=== PATIENT | female | born 1950 | race Caucasian/White ===

== ENCOUNTER 2023-11-23 09:09 | Outpatient (CLI) | payer MEDICARE, BC, SELFPAY | END 2023-11-23 09:10 | disposition home or self-care (01) | PROVIDERS: PCP Family Medicine; Visit Provider Family Medicine | DX: Z00.00 Encounter for general adult medical examination without abnormal findings (principal); E66.01 Morbid (severe) obesity due to excess calories; E55.9 Vitamin D deficiency, unspecified; R73.03 Prediabetes; I10 Essential (primary) hypertension; R53.83 Other fatigue; J45.909 Unspecified asthma, uncomplicated; G62.9 Polyneuropathy, unspecified | CPT/HCPCS: 80053; 80061; 82306; 82607; 84443 ==

== ENCOUNTER 2023-12-31 12:21 | Outpatient (CLI) | payer MEDICARE, BC, SELFPAY ==
[2023-12-31 08:56] VITALS: BMI 54.1
== END 2023-12-31 12:22 | disposition home or self-care (01) ==
LOC: NUTRITION 12:21
PROVIDERS: PCP Family Medicine; Visit Provider Dietitian, Registered
DX: E66.01 Morbid (severe) obesity due to excess calories (principal); R73.03 Prediabetes; Z71.3 Dietary counseling and surveillance
CPT/HCPCS: G0463

== ENCOUNTER 2024-01-03 09:49 | Outpatient (CLI) | payer MEDICARE, BC, SELFPAY ==
--- NOTE | 2024-01-03 10:52 | W.ANESCHARGE ---
Anesthesia Charges Start Date/Time Anesthesia Start Date: 01/03/24 Anesthesia Start Time: 10:47 Stop Date/Time Anesthesia Stop Date: 01/03/24 Anesthesia Stop Time: 11:15 Summary Extremes of Age - Over 70 or under 1: MDA
--- NOTE | 2024-01-03 11:19 | W.ANESCHARGE ---
Anesthesia Charges Start Date/Time Anesthesia Start Date: 01/03/24 Anesthesia Start Time: 10:47 Stop Date/Time Anesthesia Stop Date: 01/03/24 Anesthesia Stop Time: 11:15 Summary Extremes of Age - Over 70 or under 1: [employer]
== END 2024-01-03 09:50 | disposition home or self-care (01) ==
LOC: OP CLINIC 09:51
PROVIDERS: PCP Family Medicine; Visit Provider Internal Medicine
DX: D12.3 Benign neoplasm of transverse colon (principal); K64.9 Unspecified hemorrhoids; K57.30 Diverticulosis of large intestine without perforation or abscess without bleeding; Z86.0100 Personal history of colon polyps, unspecified
CPT/HCPCS: 00811; 45380; 88305; 99100; J2704; J3490

== ENCOUNTER 2024-01-21 09:00 | Outpatient (CLI) | payer MEDICARE, BC, SELFPAY ==
[2024-01-21 09:51] VITALS: BMI 53.6
== END 2024-01-21 09:01 | disposition home or self-care (01) ==
LOC: NUTRITION 01-24 10:35
PROVIDERS: PCP Family Medicine; Visit Provider Dietitian, Registered
DX: E66.01 Morbid (severe) obesity due to excess calories (principal); R73.03 Prediabetes; Z71.3 Dietary counseling and surveillance
CPT/HCPCS: G0463

== ENCOUNTER 2024-02-04 07:57 | Outpatient (CLI) | payer MEDICARE, BC, SELFPAY ==
[2024-02-04 09:42] VITALS: BMI 52.9
== END 2024-02-04 07:58 | disposition home or self-care (01) ==
LOC: NUTRITION 08:18
PROVIDERS: PCP Family Medicine; Visit Provider Dietitian, Registered
DX: E66.9 Obesity, unspecified (principal); Z71.3 Dietary counseling and surveillance
CPT/HCPCS: G0463

== ENCOUNTER 2024-02-18 11:43 | Outpatient (CLI) | payer MEDICARE, BC, SELFPAY ==
[2024-02-18 09:30] VITALS: BMI 52.6
== END 2024-02-18 11:44 | disposition home or self-care (01) ==
LOC: NUTRITION 11:44
PROVIDERS: PCP Family Medicine; Visit Provider Dietitian, Registered
DX: E66.9 Obesity, unspecified (principal); Z71.3 Dietary counseling and surveillance
CPT/HCPCS: G0463

== ENCOUNTER 2024-03-03 09:00 | Outpatient (CLI) | payer MEDICARE, BC, SELFPAY | END 2024-03-03 09:01 | disposition home or self-care (01) | LOC: NUTRITION 04-05 13:12 | PROVIDERS: PCP Family Medicine; Visit Provider Dietitian, Registered | DX: E66.9 Obesity, unspecified (principal); Z68.43 Body mass index [BMI] 50.0-59.9, adult; R73.03 Prediabetes; Z71.3 Dietary counseling and surveillance | CPT/HCPCS: G0463 ==

== ENCOUNTER 2024-03-17 07:39 | Outpatient (CLI) | payer MEDICARE, BC, SELFPAY ==
[2024-03-17 10:56] VITALS: BMI 51.4
== END 2024-03-17 07:40 | disposition home or self-care (01) ==
LOC: NUTRITION 07:40
PROVIDERS: PCP Family Medicine; Visit Provider Dietitian, Registered
DX: E66.9 Obesity, unspecified (principal); Z71.3 Dietary counseling and surveillance
CPT/HCPCS: G0463

== ENCOUNTER 2024-03-31 09:41 | Outpatient (CLI) | payer MEDICARE, BC, SELFPAY ==
[2024-03-31 10:38] VITALS: BMI 51.2
== END 2024-03-31 09:42 | disposition home or self-care (01) ==
LOC: NUTRITION 09:41
PROVIDERS: PCP Family Medicine; Visit Provider Dietitian, Registered
DX: E66.9 Obesity, unspecified (principal); Z68.43 Body mass index [BMI] 50.0-59.9, adult; Z71.3 Dietary counseling and surveillance
CPT/HCPCS: G0463

== ENCOUNTER 2024-04-14 09:00 | Outpatient (CLI) | payer MEDICARE, BC, SELFPAY ==
[2024-04-14 11:25] VITALS: BMI 51.1
== END 2024-04-14 09:01 | disposition home or self-care (01) ==
LOC: NUTRITION 09:01
PROVIDERS: PCP Family Medicine; Visit Provider Dietitian, Registered
DX: E66.9 Obesity, unspecified (principal); Z68.43 Body mass index [BMI] 50.0-59.9, adult; Z71.3 Dietary counseling and surveillance
CPT/HCPCS: G0463

== ENCOUNTER 2024-04-27 05:57 | Outpatient (CLI) | payer MEDICARE, BC, SELFPAY ==
[2024-04-27 10:26] VITALS: BMI 50.7
== END 2024-04-27 05:58 | disposition home or self-care (01) ==
LOC: NUTRITION 13:39
PROVIDERS: PCP Family Medicine; Visit Provider Dietitian, Registered
DX: E66.9 Obesity, unspecified (principal); Z68.43 Body mass index [BMI] 50.0-59.9, adult; Z71.3 Dietary counseling and surveillance
CPT/HCPCS: G0463

== ENCOUNTER 2024-05-04 07:24 | Outpatient (CLI) | payer MEDICARE, BC, SELFPAY ==
[2024-05-04 07:51] LABS: Creatinine* 0.9 mg/dL (0.5-1.5); Estimated Glomerular Filt Rate 68 ml/min
--- NOTE | 2024-05-04 08:00 | CRLHL7_ITS ---
For Patients: As a result of the Century Cures Act, medical imaging exams and procedure reports are released immediately into your electronic medical record. You may view this report before your referring provider. If you have questions, please contact your health care provider. INDICATION: LOCALIZED SWELLING, MASS AND LUMP, LEFT SIDE PAIN COMPARISON: none TECHNIQUE: CT ST Neck W/ 95CC [id number] Please note that all CT scans at this facility use dose modulation, iterative reconstruction, and/or weight-based dosing when appropriate to reduce radiation dose to as low as reasonably achievable. FINDINGS: The CT images demonstrate normal aeration of the mastoid air cells and middle ear cavities. Mild opacification of the ethmoid and maxillary sinuses. The nasopharynx appears normal. The parotid and submandibular glands are of normal size and have uniform enhancement. The oropharynx appears normal. The valleculae, epiglottis, aryepiglottic folds and piriform sinuses appear normal. There is a normal appearance of the larynx and subglottic trachea. Incidental sub cm nodule right thyroid lobe. There is no evidence of lymphadenopathy within the anterior and posterior cervical triangles or within the supraclavicular region. Normal left supraclavicular soft tissues without mass or fluid collection. Mild degenerative disc disease in the cervical spine. Lung apices are clear. IMPRESSION: No suspicious mass or adenopathy within the left supraclavicular region to correlate with the area of concern. Mild bilateral sinus disease incidentally noted. Please note that all CT scans at this facility use dose modulation, iterative reconstruction, and/or weight-based dosing when appropriate to reduce radiation dose to as low as reasonably achievable. Dictated by Fer Oakes MD @ 05/04/2024 8:39:11 AM (Electronically Signed)
== END 2024-05-04 07:25 | disposition home or self-care (01) ==
LOC: CT 07:25
PROVIDERS: PCP Family Medicine; Visit Provider Family Medicine
DX: R22.1 Localized swelling, mass and lump, neck (principal); J32.9 Chronic sinusitis, unspecified; M54.2 Cervicalgia
CPT/HCPCS: 36415; 70491; 82565; Q9967

== ENCOUNTER 2024-05-11 09:01 | Outpatient (CLI) | payer MEDICARE, BC, SELFPAY | END 2024-05-11 09:02 | disposition home or self-care (01) | LOC: NUTRITION 09:01 | PROVIDERS: PCP Family Medicine; Visit Provider Dietitian, Registered | DX: E66.9 Obesity, unspecified (principal); Z68.43 Body mass index [BMI] 50.0-59.9, adult; Z71.3 Dietary counseling and surveillance | CPT/HCPCS: G0463 ==

== ENCOUNTER 2024-06-01 12:50 | Outpatient (CLI) | payer MEDICARE, BC, SELFPAY ==
[2024-06-01 10:13] VITALS: BMI 50.7
== END 2024-06-01 12:51 | disposition home or self-care (01) ==
LOC: NUTRITION 12:51
PROVIDERS: PCP Family Medicine; Visit Provider Dietitian, Registered
DX: E66.9 Obesity, unspecified (principal); Z68.43 Body mass index [BMI] 50.0-59.9, adult; Z71.3 Dietary counseling and surveillance
CPT/HCPCS: G0463

== ENCOUNTER 2024-06-23 07:26 | Outpatient (CLI) | payer MEDICARE, BC, SELFPAY ==
[2024-06-23 09:29] VITALS: BMI 50.2
== END 2024-06-23 07:27 | disposition home or self-care (01) ==
LOC: NUTRITION 07:26
PROVIDERS: PCP Family Medicine; Visit Provider Dietitian, Registered
DX: E66.9 Obesity, unspecified (principal); Z68.43 Body mass index [BMI] 50.0-59.9, adult; Z71.3 Dietary counseling and surveillance
CPT/HCPCS: G0463

== ENCOUNTER 2024-06-26 08:11 | Outpatient (CLI) | payer MEDICARE, BC, SELFPAY | END 2024-06-26 08:12 | disposition home or self-care (01) | LOC: NFLDREF 07-01 19:43 | PROVIDERS: PCP Family Medicine; Referring Provider Family Medicine; Visit Provider Family Medicine | DX: R73.03 Prediabetes (principal); I10 Essential (primary) hypertension | CPT/HCPCS: 80053 ==

== ENCOUNTER 2024-07-21 06:22 | Outpatient (CLI) | payer MEDICARE, BC, SELFPAY ==
[2024-07-21 10:25] VITALS: BMI 50.5
== END 2024-07-21 06:23 | disposition home or self-care (01) ==
LOC: NUTRITION 06:26
PROVIDERS: PCP Family Medicine; Visit Provider Dietitian, Registered
DX: E66.9 Obesity, unspecified (principal); Z68.43 Body mass index [BMI] 50.0-59.9, adult; Z71.3 Dietary counseling and surveillance
CPT/HCPCS: G0463

== ENCOUNTER 2024-08-11 08:02 | Outpatient (CLI) | payer MEDICARE, BC, SELFPAY ==
[2024-08-11 09:26] VITALS: BMI 50.4
--- OUTSIDE RECORDS SUMMARY | 2024-08-12 00:19 | XMS_ITS | Clinical Summary ---
Author Organization [facility] Address [address] [place] [id number] Care Team Providers Care Nurse Assessor Name Role Phone Mounika Astorga MD Primary Care Provider [phone] Allergies Active Allergy Reactions Criticality Noted Date Comments Mustapha Inhibitors Cough Medium 01/06/2021 Amoxicillin *Unknown Medium 01/06/2021 Diltiazem Hcl *Unknown Medium 01/06/2021 Medications RAMY 180 MG TAB take 1 tablet (180 mg) by oral route once daily 0 Active ibuprofen (ADVIL; MOTRIN) 200 mg cap Take 400 mg by mouth every 4 hours if needed. 4 Active budesonide-formot Beronica (SYMBICORT) 160-4.5 mcg/actuation (160-4.5 mcg each actuation) inhalerIndication s:Moderate persistent asthma without complication (HC) Inhale 2 Puffs by mouth two times daily. 30.6 g 4 Active albuterol HFA (PRO-AIR; VENTOLIN; PROVENTIL) 90 mcg/actuation inhalerIndication s:Moderate persistent asthma without complication (HC) Inhale 1-2 Puffs by mouth every 4 hours if needed for Shortness of Breath 1st choice. 1 Each 4 Active losartan (COZAAR) 100 mg tabletIndications :HTN (hypertension) Take 1 Tablet (100 mg) by mouth once daily. 90 Tablet 4 Active oxybutynin XL (DITROPAN XL) 10 mg CR tabletIndications :Overactive bladder Take 1 Tablet (10 mg) by mouth once daily. 90 Tablet 4 Active Active Problems Problem Noted Date Diagnosed Date Colon polyp 03/21/2021 Overview (10/22/2022): Colonoscopy 03/2021 over ten TA,, one SSA repeat in 1 year Colonoscopy 10/2022 8-TA, repeat in 2 years, genetic counseling Mild persistent asthma, uncomplicated 09/11/2015 Essential (primary) hypertension 10/24/2013 Overactive bladder 04/20/2011 Resolved Problems Problem Noted Date Diagnosed Date Resolved Date Cough 06/26/2019 10/13/2022 Body mass index (BMI) 40.0-44.9, adult 08/25/2018 10/13/2022 Leukoplakia of oral mucosa, including tongue 9 10/13/2022 Other specified disorder of gallbladder 03/22/2007 10/13/2022 Overview (03/22/2007): Biliary dyskinesia. Immunizations Immunization Administration Dates Next Due COVID-19 vaccine (Moderna 100mcg/0.5mL) PF, MDV 05/16/2021,12/06/2020 Influenza, High-dose Inactivated 12/20/2017,11/15 Influenza, High-dose Quadrivalent Inactivated Influenza, IIV4 12/04/2015,12/12/2014 Influenza, Inactivated AIIV4 (Age 65+ Years) Preserv Free 10/27/2021,11/06/2019 Influenza, Inactivated IIV3 (Age 65+ Years) Preserv Free 11/14/2018 Pneumococcal Poly,23-Valent (Pneumovax) 11/15/19 21,02/22/2009 Pneumococcal conj 13-Valent (Prevnar 13) 019 Td, Preservative Free (age >= 7 Years) 3 Tdap 12/22/2011 Zoster (Shingrix-RZV, recombinant) 08/26/2022 Family History Medical History Relation Name Comments Asthma Brother 1 Stroke Brother 1 Skin cancer Brother 2 Lung cancer Brother 3 Lung cancer Father Hepatitis Mother Cancer-breast No Family History Cancer-ovarian No Family History Relation Name Status Comments Brother 1 Alive Brother 2 Brother 3 Alive Brother 4 Alive Brother 5 Alive Father (Age 59) Cause of d eath was lung cancer Mother (Age 77) Cause of d eath was hepatitis complications Social History Tobacco Use Types Packs/Day Years Used Date Smoking Tobacco: Never Smokeless Tobacco: Never Alcohol Use Standard Drinks/Week Comments Never 0 (1 standard drink = 0.6 oz pur e alcohol) PHQ-2 Answer Date Recorded PHQ-2 TOTAL SCORE 0 10/13/2022 Social Connections Answer Date Recorded Frequency of Communication with Friends and Fami ly 0 07/14/2022 Financial Resource Strain Answer Date R ecorded Difficulty of Paying Living Expenses 3 07/14/2022 Difficulty of Paying Living Expenses Not on file 07/14/2022 Food Insecurity Answer Date Recorded Worried About Running Out of Food in the Last Ye ar 1 07/14/2022 Transportation Needs Answer Date Record ed Lack of Transportation (Medical) 1 07/14/2022 Housing Stability Answer Date Recorded Unable to Pay for Housing in the Last Year 1 07/14/2022 Comments No Sex and Gender Information Value Date Recorded Sex Assigned at Not on file Legal Sex Female 6:19 AM [employer] 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 Gender Identity Not on file Sexual Orientation Not on file Obstetrics History Last Filed Vital Signs Vital Sign Reading Time Taken Comments Blood Pressure 132/74 10/20/2022 11:15 AM CDT Pulse 70 10/20/2022 11:15 AM CDT Temperature 36.8 C (98.2 F) 03/22/2007 7:00 AM DRUG 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 Respiratory Rate 16 10/20/2022 11:15 AM CDT Oxygen Saturation 92% 10/20/2022 11:15 AM CDT Inhaled Oxygen Concentration - - Weight 136.1 kg (300 lb) 10/13/2022 9:54 AM CDT Height 162.6 cm (5' 4) 10/13/2022 9:54 AM CDT Body Mass Index 51.49 10/13/2022 9:54 AM CDT Plan of Treatment Health Maintenance Due Date Last Done Comments RSV vaccine for adults or (1 - Risk 60-74 years 1-dose series) 2011 Zoster (shingles) series for age 50+ (2 of 2) 10/21/2022 08/26/2022 BMI (ht and wt on same day) for age 18+ 10/14/2023 10/13/2022, 07/14/2022, 08/04/2021, Additional history exists Medicare Wellness for age 65+ 10/14/2023 10/13/2022, 08/04/2021 Depression screening for age 12+ 10/16/2023 10/15/2022, 10/13/2022, 08/04/2021, Additional history exists COVID-19 vaccine series ( season) 2023 06/25/2022, 10/27/2021, 05/16/2021, Additional history exists Colonoscopy through age 75 10/21/202310/20, 10/20/2022, 03/19/2021, Additional history exists Influenza Vaccine (Season Ended) 2024 10/27/2021, 11/06/2019, 11/14/2018, Additional history exists Mammogram for age 45-75 10/25/2024 10/26/19 24, 07/03/2022, 01/21/2021, Additional history exists Lipids for age 45-75 10/14/2027 10/13/2022, 01/07/20 Tetanus booster 08/26/2032 08/26/2022, 12/22/2011 Tdap Completed 12/22/2011 Pneumococcal series for age 50+ Completed 11/14/2020, 06/27/2018, 02/22/2009 DEXA/DXA scan for age 65+ Completed 08/04/2021 Hepatitis C screening for age 18-79 Completed 08/04/2021 Hepatitis B series for 19+ Aged Out N o longer eligible based on patient's age to complete this topic Procedures Procedure Name Priority Date/Time Associated Diagnosis Comments XR MAMMO LOTTIE BILAT SCREEN Routine 10/26/2023 9:40 AM CDT Encounter for screening mammogram for malignant neoplasm of breast COLONOSCOPY 10/20/2022 9:58 AM CDT LIPID PANEL W REFLEX MEASURED LDL Routine 10/13/2022 10:38 AM CDT HTN (hypertension) XR DXA BONE DENSITY 2 SITES AXIAL Routine 08/04/2021 2:13 PM CDT Menopause ANTI HCV Routine 08/04/2021 1:38 PM CDT Need for hepatitis C screening test from Last 3 Months or Most Recently Relevant to Health Maintenance Results * XR MAMMO LOTTIE BILAT SCREEN (10/26/2023 9:40 AM CDT) Anatomical Region Laterality Modality BREASTS, Breast Left, Breast Right Bilateral Mammography Impressions 10/26/2023 2:02 PM CDT There is no radiographic evidence for malignancy. Recommend annual mammograms. MAMMOGRAM ASSESSMENT: ACR 1 Negative PATIENTS: You will also receive a letter with your examination results in an easy to read format. If you have questions about your results, please contact your referring provider. Narrative 10/26/2023 2:02 PM CDT For Patients: As a result of the Century Cures Act, medical imaging exams and procedure reports are released immediately into your electronic medical record. You may view this report before your referring provider. If you have questions, please contact your health care provider. XR MAMMO LOTTIE BILAT SCREEN [[id number]] CLINICAL HISTORY: This is an asymptomatic 73 y.o. patient. INDICATION FOR EXAM: Mammogram Screening. TECHNIQUE: CC & MLO views were obtained. This study was evaluated with the assistance of Computer-Aided Detection. Breast Tomosynthesis was used in interpretation. COMPARISON FILM: Yes 07/03/22 [facility] 01/21/21 [facility] FINDINGS: The breasts are almost entirely fatty. There are no dominant masses, suspicious micro calcifications or areas of architectural distortion. us Mounika Astorga MD MAMMO Final Resu lt * COLONOSCOPY (10/20/2022 9:58 AM CDT) 10/20/2022 9:58 AM CDT Narrative Transcriptions Cayetano Garcia MD - 10/20/2022 11:08 AM CDT Patient Name: Glenn Mistyr Procedure Date: 10/20/2022 Gender: Female Date of : 1950 Admit Type: Outpatient Procedure: Colonoscopy Proceduralist: Cayetano Garcia MD , Janice Rouse RN(Nurse), Teagan Herring (Nurse) Indications/Pre-Op Diagnosis: High risk colon cancer surveillance:Personal history of multiple (3 or more) adenomas,High risk colon cancer surveillance: Personal history of sessile serrated colon polyp(less than 10 mm in size) with no dysplasia, Last colonoscopy: March 2021 Medications: Fentanyl 100 micrograms IV, Midazolam 2 mgIV, The level of sedation administered wasmoderate Procedure Description: The patient had risks, benefits and alternatives explained to andgave informed consent. The patient had a stable cardiopulmonary status and judged an adequate candidate for conscious sedation. The endoscope [id number] was passed through the anus andadvanced to the cecum, identified by appendiceal orifice and ileocecal valve.The colonoscopy was performed without difficulty. The patient toleratedthe procedure well. The quality of the bowel preparation was good. The ileocecal valve, appendiceal orifice, and rectum were photographed. Complications: No immediate complications. Estimated Blood Loss & Specimen: Estimated blood loss: none. Specimen collected - Yes and sent to Laboratory Findings: The perianal and digital rectal examinations were normal. Three sessile polyps were found in the cecum. The polyps were 2 to 3mm in size. These polyps were removed with a cold biopsy forceps.Resection and retrieval were complete. Five sessile polyps were found in the transverse colon. The polypswere 2 to 3 mm in size. These polyps were removed with a cold biopsyforceps. Resection and retrieval were complete. The colon (entire examined portion) was mildly redundant. The exam was otherwise without abnormality on direct and retroflexion views. Impressions/Post-Op Diagnosis: - Three 2 to 3 mm polyps in the cecum, removed with a cold biopsy forceps. Resected and retrieved. - Five 2 to 3 mm polyps in the transverse colon, removed with a cold biopsy forceps. Resected and retrieved. - Redundant colon. - The examination was otherwise normal on direct and retroflexionviews. Recommendation: - Patient has a contact number available for emergencies. The signsand symptoms of potential delayed complications were discussed with the patient. Return to normal activities tomorrow. Written discharge instructions were provided to the patient. - Resume previous diet. - Continue present medications. - Await pathology results. - Repeat colonoscopy for surveillance based on pathology results. Moderate Sedation: A time out was performed before the procedure. Moderate (conscious) sedation was administered by the endoscopy nurse and supervised bythe endoscopist. The following parameters were monitored: oxygensaturation, heart rate, blood pressure, EKG, CO2, respiratory rate, adequacy of pulmonary ventilation and reponse to care. Please refer to the patient's medical record flowsheets and nursing notes for moderate sedation details. Total physician intraservice time was 28 minutes. Cayetano Garcia MD 10/20/2022 11:08:36 AM This report has been signed electronically. Note Initiated On: 10/20/2022 9:58 AM Procedure Code(s): --- Professional --- 74413, Colonoscopy, flexible; with biopsy, single or multiple Diagnosis Code(s): --- Professional --- D12.0, Benign neoplasm of cecum D12.3, Benign neoplasm of transverse colon (hepatic flexure or splenic flexure) Z86.010, Personal history of colonicpolyps Q43.8, Other specified congenitalmalformations of intestine CPT copyright 2021 [employer]. All rights reserved. The codes documented in this report are preliminary and upon rn clinical coordinator reviewmay be revised to meet current compliance requirements. Scope In: 10:29:39 AM Scope Withdrawal Time 0 hours 22 minutes 11 seconds Scope Out: 10:55:49 AM us Cayetano Garcia MD PROCEDURE ORD Final Res ult * (ABNORMAL) LIPID PANEL W REFLEX MEASURED LDL (10/13/2022 10:38 AM CDT) CHOLESTEROL,TOTAL 174 100 - 199 mg/dL 10/14/2022 9:06 AM CDT [facility] Comment: Cholesterol, Total Reference Ranges Desirable <200 mg/dL Borderline 200-239 mg/dL High >=240 mg/dL TRIGLYCERIDES 221(H) <150 mg/dL 10/14/2022 9:06 AM CDT [facility] HDL CHOLESTEROL 35(L) >40 mg/dL 9:06 AM CDT [facility] NON-HDL CHOLESTEROL 139 <145 mg/dl 10/14/2022 9:06 AM CDT [facility] CHOL/HDL RATIO 4.97(H) <4.50 10/14/2022 9:06 AM CDT [facility] LDL CHOLESTEROL 95 <=130 mg/dL 10/14/2022 9:06 AM CDT [facility] VLDL CHOLESTEROL 44(H) <=30 mg/dL 10/14/2022 9:06 AM CDT [facility] PROVIDER ORDERED STATUS RANDOM 10/14/2022 9:06 AM T [facility] Blood BLOOD SPECIMEN / Unknown Venipuncture / Unknown 10/13/2022 10:38 AM CDT 10/13/2022 10:38 AM CDT us Mounika Astorga MD CHEMISTRY Final Resu lt [facility] [address] [place] [address], [place] * XR DXA BONE DENSITY 2 SITES AXIAL [22842.1] (08/04/2021 2:13 PM CDT) Anatomical Region Laterality Modality Spine, HIPS, HIPL, HIPR Computed Radiography 08/04/2021 2:13 PM CDT Impressions 08/04/2021 5:11 PM CDT Low bone density (OSTEOPENIA). T score meets the World Health Organization (WHO) criteria for low bone density (osteopenia) at one or more measured sites. The risk of osteoporotic fracture increased approximately two-fold for each SD decrease in T-score. Narrative 08/04/2021 5:11 PM CDT For Patients: As a result of the Cures Act, medical imaging exams and procedure reports are released immediately into your electronic medical record. You may view this report before your referring provider. If you have questions, please contact your health care provider. EXAM: XR DXA BONE DENSITY 2 SITES AXIAL LOCATION: [facility] DATE/TIME: 08/04/2021 2:13 PM INDICATION: I. other (screening-at minimum one option in 2-5 must be selected) - z13.820 Menopause. COMPARISON: None. TECHNIQUE: Dual-energy x-ray absorptiometry performed with routine technique. FINDINGS: Lumbar Spine: L1-L2: BMD: 0.917 g/cm2. T-score: -2.1. Z-score: -1.6 RIGHT Hip Total: BMD: 0.868 g/cm2. T-score: -1.1. Z-score: -0.5 RIGHT Hip Femoral neck: BMD: 0.877 g/cm2. T-score: -1.2. Z-score: -0.2 LEFT Hip Total: BMD: 0.872 g/cm2. T-score: -1.1. Z-score: -0.5 LEFT Hip Femoral neck: BMD: 0.920 g/cm2. T-score: -0.9. Z-score: 0.1 WHO Criteria: Normal: T score at or above -1 SD Osteopenia: T score between -1 and -2.5 SD Osteoporosis: T score at or below -2.5 SD COMPARISON: None. FRAX Results: 10 year probability of major osteoporotic fracture is 12.0%, and of hip fracture is 1.2%, based on right femoral neck BMD. RECOMMENDATIONS: Consider treatment if major osteoporotic fracture score is greater than or equal to 20%. Consider treatment if hip fracture score is greater than or equal to 3%. Procedure Note Fran Ivan MD - 08/04/2021 For Patients: As a result of the 21st Century Cures Act, medical imagingexams and procedure reports are released immediately into your electronicmedical record. You may view this report before your referring provider.If you have questions, please contact your health care provider. EXAM: XR DXA BONE DENSITY 2 SITES AXIAL LOCATION: [facility] DATE/TIME: 08/04/2021 2:13 PM INDICATION: I. other (screening-at minimum one option in 2-5 must beselected) - z13.820 Menopause. COMPARISON: None. TECHNIQUE: Dual-energy x-ray absorptiometry performed with routinetechnique. FINDINGS: Lumbar Spine: L1-L2: BMD: 0.917 g/cm2. T-score: -2.1. Z-score: -1.6 RIGHT Hip Total: BMD: 0.868 g/cm2. T-score: -1.1. Z-score: -0.5 RIGHT Hip Femoral neck: BMD: 0.877 g/cm2. T-score: -1.2. Z-score: -0.2 LEFT Hip Total: BMD: 0.872 g/cm2. T-score: -1.1. Z-score: -0.5 LEFT Hip Femoral neck: BMD: 0.920 g/cm2. T-score: -0.9. Z-score: 0.1 WHO Criteria: Normal: T score at or above -1 SD Osteopenia: T score between -1 and -2.5 SD Osteoporosis: T score at or below -2.5 SD COMPARISON: None. FRAX Results: 10 year probability of major osteoporotic fracture is 12.0%,and of hip fracture is 1.2%, based on right femoral neck BMD. RECOMMENDATIONS: Consider treatment if major osteoporotic fracture score is greater than orequal to 20%. Consider treatment if hip fracture score is greater than orequal to 3%. IMPRESSION: Low bone density (OSTEOPENIA). T score meets the World Health Organization(WHO) criteria for low bone density (osteopenia) at one or more measuredsites. The risk of osteoporotic fracture increased approximately two-foldfor each SD decrease in T-score. Mounika Astorga MD DEXA Final Resu lt * ANTI HCV (08/04/2021 1:38 PM CDT) HEPATITIS C ANTIBODY Non-React cari Non-React cari 08/04/2021 10:25 PM CDT [facility] Comment:Antibodies to HCV no t detected; does not exclude the possibility of exposure to HCV. Blood BLOOD SPECIMEN / Unknown Venipuncture / Unknown 08/04/2021 1:38 PM CDT 08/04/2021 1:43 PM CDT Mounika Astorga MD SEND OUTS Final Resu lt [facility] [address] [place] [address], [place] from Last 3 Months or Most Recently Relevant to Health Maintenance Insurance [facility] MEDICARE PB ONLY MEDICARE PART B HB ONLY MEDICARE PART A HB ONLY Care Teams Nurse Assessor Relationship Specialty [place] [address] [address] [place] [address] PCP - General Family Practice 04/10/20
== END 2024-08-11 08:03 | disposition home or self-care (01) ==
LOC: NUTRITION 08:03
PROVIDERS: PCP Family Medicine; Visit Provider Dietitian, Registered
DX: E66.9 Obesity, unspecified (principal); Z68.43 Body mass index [BMI] 50.0-59.9, adult; Z71.3 Dietary counseling and surveillance
CPT/HCPCS: G0463

== ENCOUNTER 2024-08-24 09:15 | Outpatient (RCR) | payer MEDICARE, BC, SELFPAY ==
--- NOTE | 2024-08-03 15:21 | PT.OPEX ---
PT [place] Outpatient Eval PT [facility] Outpatient Eval Start: 08/03/24 13:47 Freq: Status: Active Protocol: Document 08/03/24 13:48 [facility] (Rec: 08/03/24 15:10 [facility] [id number]) E-signed By Jaspreet Casarez PT Physical Therapy Outpatient Evaluation Insurance Information Recert Due Date 10/26/24 Insurance Name Medicare B Medical Diagnosis Pain in hip M25.559 Pain in left ankle M25.572 Treating Diagnosis Left hip pain M25.552 Difficulty in walking R26.2 Possible lumbar radiculopathy M54.16 Imaging Report none Information Referring MD Dr. Prudence Sheikh Subjective Preferred Name Glenn Subjective Glenn reports she has left lateral hip pain that radiates down to her ankle when lying on her left side. She also has low back pain with walking and prolonged standing. Both symptoms started at the same time ~ six weeks ago after she and her had started a progressive walking program outside this spring. She remember walking up/down a hill the day before her pain started. She woke up with the left leg pain laying on her left side. She has tried a 5 day course of prednisone. It helped a bit but then symptoms returned. Denies pain w/ cough/ sneeze. Glenn has noticed increased swelling left ankle in the last couple of days. Aggravating: walking > 1 block, sleeping on left side PLOF: 10-15 minutes slow walking symptom free Stairs are ok as long as pain not activated PMH: peripheral neuropathy, HTN, asthma Pain Comments 08/24 left lateral hip to ankle Date of Last 07/04/24 Physician Visit Current Work Status Retired Precautions Therapy Limitations/ Not Limited Systems Review Objective Other/Pertinent Posture: slightly elevated right pelvis, mild TL Objective scoliosis w/ right concavity Observation: mild pitting edema left ankle Balance: SLS: R: 1 sec L: 1 sec, no increase in symptoms AROM: Lumbar: Flexion: reach to shins:symptom free Extension: ltd ~25%: symptom free Sidebend: WNL, symptom free Left hip PROM: Flexion: 95 deg (soft tissue approximation) ER: WNL IR: WNL (35-40 deg) Left LE strength: hip flexion: 4-/5 * Hip ext: 4/5 Knee ext: 4/5 * Knee flexion: 4+ Ankle PF: 4 Ankle DF: 4+ Special tests: Left LE SLR: + concordant sign ~50 deg hip flexion, increased with stretch Left hip flexibility: + left hip pain w/ glute med/ piriformis stretch Palpation: + TTP left GT (severe) glute med (mod/ severe) piriformis (mod) left PSIS (mild), non-tendern lumbosacral paraspinals or over spine w/ G2 PAs in sidelying Functional Test Ambulation: 400 ft in 2 min 10 sec Performed & Score Onset of 1/10 low back pain after one minute. Increased to 2/10 by 2 minutes. Increased waddle with ambulation distance LEFS: 34 (moderate functional limitation) Assessment Assessment/ 73 year old female presents with onset of left lateral Impression hip pain that radiates down to her ankle ~6 weeks ago after walking up/down a hill during her newly started daily short walks. Signs and symptoms are consistent with left greater trochanteric bursitis/greater trochanteric pain syndrome with possible component of lumbar facet arthropathy as source of her low back pain. She was highly irritable over greater trochanter bursa and gluteus medius. Lumbar AROM was nearly WNL and symptom free. She demonstrated positive response to initial manual therapy treatment with decreasing pain with STM to gluteus medius & piriformis. She scored moderate functional limitation on the LEFS. I recommend continued skilled PT for MT and progressive HEP to facilitate return to PLOF. Primary Functional ambulation > 200 ft (back pain), sleep on L>R side ( Limitations left hip->ankle pain) prolonged standing: back Plan of Care Rehabilitation Excellent Potential Physical Therapy In 6-10 weeks, patient will: Goals 1) Be able to ambulate at least 10 minutes with minimal discomfort in low back 2) Be able to return to sleeping in her bed, on her sides, with minimal discomfort 3) Improve LEFS score to 40, to minimal functional limitation level 4) Be I with HEP and self-management of residual symptoms Coordination/ Referral Source Communication With Treatment Plan/ Manual Therapy,Neuromuscular Re-ed,Self-Care/Home Direct Interventions Management,Therapeutic Activities,Therapeutic Exercises Frequency/Duration 1-2x/week for up to 8 visits of 6-10 weeks Patient Will Be Completion of LTG(s),Independent w/HEP,Independently Discharged From Progressing Therapy Evaluation Billing Untimed Code 25 Treatment Minutes Complexity Low Certification Information Initial 08/03/24 Certification Date Ending Certification 10/26/24 Date Provider Signature Yes Required Provider Signature POC & Medical Necessity Shows Agreement With Physician NPI Number Write NPI# Here Physician Comment/ : Change Physician Signature Please Sign/Date Here & Date Requested
== END 2024-08-30 14:02 | disposition home or self-care (01) ==
PROVIDERS: PCP Family Medicine; Visit Provider Family Medicine
DX: M25.559 Pain in unspecified hip (principal); M25.572 Pain in left ankle and joints of left foot; Z51.89 Encounter for other specified aftercare
CPT/HCPCS: 97110; 97140; 97161

== ENCOUNTER 2024-09-01 05:58 | Outpatient (CLI) | payer MEDICARE, BC, SELFPAY ==
[2024-09-01 09:33] VITALS: BMI 49.9
== END 2024-09-01 05:59 | disposition home or self-care (01) ==
LOC: NUTRITION 05:59
PROVIDERS: PCP Family Medicine; Visit Provider Dietitian, Registered
DX: E66.9 Obesity, unspecified (principal); Z68.43 Body mass index [BMI] 50.0-59.9, adult; Z71.3 Dietary counseling and surveillance
CPT/HCPCS: G0463

== ENCOUNTER 2024-09-21 10:32 | Outpatient (CLI) | payer MEDICARE, BC, SELFPAY ==
[2024-09-21 10:05] VITALS: BMI 49.7
== END 2024-09-21 10:33 | disposition home or self-care (01) ==
LOC: NUTRITION 10:32
PROVIDERS: PCP Family Medicine; Visit Provider Dietitian, Registered
DX: E66.9 Obesity, unspecified (principal); Z68.43 Body mass index [BMI] 50.0-59.9, adult; Z71.3 Dietary counseling and surveillance
CPT/HCPCS: G0463

== ENCOUNTER 2024-10-27 07:41 | Outpatient (CLI) | payer MEDICARE, BC, SELFPAY ==
[2024-10-27 11:39] VITALS: BMI 49.7
== END 2024-10-27 07:42 | disposition home or self-care (01) ==
LOC: NUTRITION 07:41
PROVIDERS: PCP Family Medicine; Visit Provider Dietitian, Registered
DX: E66.9 Obesity, unspecified (principal); Z68.43 Body mass index [BMI] 50.0-59.9, adult; Z71.3 Dietary counseling and surveillance
CPT/HCPCS: G0463

== ENCOUNTER 2024-12-26 07:55 | Outpatient (CLI) | payer MEDICARE, BC, SELFPAY | END 2024-12-26 07:56 | disposition home or self-care (01) | LOC: NFLDREF 12-29 04:24 | PROVIDERS: PCP Family Medicine; Referring Provider Family Medicine; Visit Provider Family Medicine | DX: E78.5 Hyperlipidemia, unspecified (principal); M85.80 Other specified disorders of bone density and structure, unspecified site; I10 Essential (primary) hypertension | CPT/HCPCS: 80053; 80061; 82306 ==

== ENCOUNTER 2025-01-04 13:03 | Outpatient (CLI) | payer MEDICARE, BC, SELFPAY ==
--- NOTE | 2025-01-04 13:30 | CRLHL7_ITS ---
For Patients: As a result of the Century Cures Act, medical imaging exams and procedure reports are released immediately into your electronic medical record. You may view this report before your referring provider. If you have questions, please contact your health care provider. DXA BONE MINERAL DENSITY STUDY Reason for exam: Follow-up osteopenia. Current height (in): 64. Weight (lb): 300. Menopause age: Not provided. Ethnicity: White. 1. Have you had a previous hip or vertebral fracture? No. 2. Have you had any fractures during your adult life which did not result from significant trauma (e.g., auto accident)? No. 3. Did either of your parents have a hip fracture? No. 4. Do you smoke? No. 5. Have you ever taken Glucocorticoids? Yes. 6. Do you have rheumatoid arthritis? No. 7. Do you have secondary osteoporosis? No. 8. Do you drink 3 or more alcoholic drinks per day? No. 9. Are you being treated for osteoporosis? No. 10. Have you ever taken any of the following medications: Actonel, Evista, Fosamax, Miacalcin, Reclast, Boniva, Forteo, HRT (i.e. estrogen/hormone therapy), Protelos, Prolia, Vitamin D, Calcium, other ??? please specify. ANSWER: No. 11. Do you have any of the following medical conditions: Anorexia or bulimia, asthma or emphysema, end stage renal disease, hyperparathyroidism, any seizure disorders, cancer, inflammatory bowel diseases, hysterectomy, other ??? please specify. ANSWER: Yes, asthma or emphysema, and hysterectomy. 12. What was your maximum height (inches)? 64. 13. Do you perform weight bearing exercise regularly? No. 14. Do you regularly consume dairy products? Yes. 15. Do you drink caffeinated beverages? Yes. 16. At what age did your period start? 13. 17. Are you premenopausal? No. 18. How many full-term pregnancies have you had? Not provided. 19. Have you ever missed your period for more than 6 months in a row (not including or menopause)? No. TECHNIQUE: Bone mineral density study was performed using the [employer]. FINDINGS: The results of the study expressed as bone mineral density (BMD) are as follows: Lumbar spine L2 to L3: BMD: 0.796 g/cm2. T-score: -2.4. Z-score: 0.0. Neck Left: BMD: 0.627 g/cm2. T-score: -2.0. Z-score: 0.0. Right: BMD: 0.565 g/cm2. T-score: -2.6. Z-score: -0.6. Total Left: BMD: 0.981 g/cm2. T-score: 0.3. Z-score: 2.0. Right: BMD: 0.911 g/cm2. T-score: -0.3. Z-score: 1.4. Radius Right 33%: BMD: 0.686 g/cm2. T-score: -0.1. Z-score: 2.3. IMPRESSION: Osteoporosis. *Comparison exams done prior to 07/2019 were performed on different unit, [employer]. Fer Oakes M.D. Diagnostic Radiologist [email or web address] MAHSA/blaze thakur/Dictated by: Fer Oakes MD @ 01/05/2025 9:22:00 AM (Electronically Signed)
== END 2025-01-04 13:04 | disposition home or self-care (01) ==
LOC: RAD 13:04
PROVIDERS: PCP Family Medicine; Visit Provider Family Medicine
DX: M85.80 Other specified disorders of bone density and structure, unspecified site (principal); M81.0 Age-related osteoporosis without current pathological fracture; Z78.0 Asymptomatic menopausal state
CPT/HCPCS: 77080